=== PATIENT | female | born 1985 | race Caucasian/White ===

== ENCOUNTER 2017-03-29 18:16 | Emergency (ER) | payer OTHER ==
[~2017-03-29] VITALS: Ht 165.1 cm; Wt 87.0 kg
[~2017-03-29 18:16] MED LIST: AMOX1TAB10 PO; HYDR-902 PO; IBUP-1542 PO
[2017-03-29 18:18] VITALS: Ht 165.1 cm; Wt 87.0 kg
[2017-03-29] MEDS ORDERED: ONDANSETRON 4 MG INJ IV STA (18:50)
[2017-03-29] MEDS ORDERED: SOD CHLORIDE 0.9% 1,000 ML IV STA (18:50)
[2017-03-29] MEDS ORDERED: FAMOTIDINE 20 MG INJ IV ONE (19:00)
[2017-03-29] MEDS ORDERED: METHYLPREDNISOLONE 125 MG INJ IV ONE (19:00)
[2017-03-29] MEDS ORDERED: DIPHENHYDRAMINE 50 MG INJ IV ONE (19:00)
--- NOTE | 2017-03-29 19:20 | ERD ---
ER Documentation Chief Complaint Date/Time DATE: 03/29/17 TIME: 19:18 Chief Complaint Coomplains of an allergic reaction after eating pork HPI 31-year-old female comes emergency department with a generalized rash, nausea vomiting and abdominal pain after eating pork this afternoon. Patient states she has intermittent lower abdominal cramping pain. Patient states that she did not eat anything else new as she was fasting, denies other new foods, medications, lotions or creams. She states that her rash is itchy, mostly on the arms and trunk. She has not ever had a reaction like this before to poor, denies any known allergens. She denies any trouble swallowing, shortness of breath. ROS All systems reviewed and are negative except as per history of present illness. Medications Home Meds Active Scripts Diphenhydramine Hcl* (Benadryl*) 25 Mg Cap, 25 MG PO Q6, #30 CAP Prov:JO ANN DEY PA-C 03/29/17 Famotidine* (Pepcid*) 20 Mg Tablet, 20 MG PO BID for 4 Days, TAB Prov:JO ANN DEY PA-C 03/29/17 Prednisone* (Prednisone*) 20 Mg Tab, 40 MG PO DAILY for 4 Days, TAB Prov:JO ANN DEY PA-C 03/29/17 Hydrocodone/Acetaminophen ([place] 10-325 Tablet) 1 Each Tablet, 1 TAB PO Q6H Y for PAIN, #7 TAB Prov:OMERO COLBY MD 06/25/16 Ibuprofen* (Motrin*) 600 Mg Tab, 600 MG PO Q8H Y for PAIN, #20 TAB Prov:OMERO COLBY MD 06/25/16 Amoxicillin/Potassium Clav (Amox-Clav 875-125 mg Tablet) 875-125 mg Tab, 1 TAB PO BID for 10 Days, #20 TAB Prov:OMERO COLBY MD 06/25/16 Allergies Allergies: Coded Allergies: No Known Allergy (Unverified , 06/25/16) PMhx/Soc Medical and Surgical Hx: pt denies Medical Hx, pt denies Surgical Hx History of Surgery: No Anesthesia Reaction: No Hx Neurological Disorder: No Hx Respiratory Disorders: No Hx Cardiac Disorders: No Hx Psychiatric Problems: No Hx Miscellaneous Medical Probl: No Hx Alcohol Use: No Hx Substance Use: No Hx Tobacco Use: No Smoking Status: Never smoker Physical Exam Vitals Vital Signs Date Time Temp Pulse Resp B/P Pulse Ox O2 Delivery O2 Flow Rate FiO2 03/29/17 20:33 98.6 73 16 114/59 100 Room Air 03/29/17 18:18 97.9 78 20 129/73 94 Physical Exam General: Well-developed, well-nourished. The patient appears in no acute distress. HEENT: Head is normocephalic, atraumatic. No scleral icterus. No angioedema. Neck: Supple. Nontender. Lungs: Clear to auscultation. Normal air movement. Heart: Regular rate and rhythm. S1 and S2 are normal. No murmurs, gallops, or rubs. Abdomen: Soft, nontender, nondistended. Bowel sounds are normoactive. Extremities: No clubbing or cyanosis. Normal pulses. Moving extremities x 4. No weakness. Neurologic: Alert and oriented 3. No focal deficits. Skin: Scattered hives on upper extremities and trunk, rashes blanchable. Result Diagram: 03/29/17190903/29/171909 Results 24 hrs Laboratory Tests Test 03/29/17 19:01 03/29/17 19:10 Urine Color LT. YELLOW Urine Clarity CLEAR Urine pH 6.0 Urine Specific [place] 1.025 Urine Ketones 3+ Urine Nitrite NEGATIVE Urine Bilirubin NEGATIVE Urine Urobilinogen 0.2 E.U./dL Urine Leukocyte Esterase NEGATIVE Urine Microscopic RBC 0-2/HPF Urine Microscopic WBC NONE SEEN/HPF Urine Epithelial Cells OCCASIONAL Urine Hemoglobin TRACE Urine Glucose NEGATIVE% Urine Total Protein NEGATIVE White Blood Count 13.110^3/ul Red Blood Count 4.6810^6/ul Hemoglobin 12.3g/dl Hematocrit 37.0% Mean Corpuscular Volume 79.1fl Mean Corpuscular Hemoglobin 26.3pg Mean Corpuscular Hemoglobin Concent 33.2g/dl Red Cell Distribution Width 13.7% Platelet Count 05422^3/UL Mean Platelet Volume 11.9fl Neutrophils % 73.5% Lymphocytes % 23.2% Monocytes % 2.5% Eosinophils % 0.2% Basophils % 0.2% Nucleated Red Blood Cells % 0.0/100WBC Neutrophils # 9.610^3/ul Lymphocytes # 3.010^3/ul Monocytes # 0.310^3/ul Eosinophils # 0.010^3/ul Basophils # 0.010^3/ul Nucleated Red Blood Cells # 0.010^3/ul Sodium Level 136mmol/L Potassium Level 3.3mmol/L Chloride Level 100mmol/L Carbon Dioxide Level 24mmol/L Anion Gap 15 Blood Urea Nitrogen 14mg/dl Creatinine 0.56mg/dl Glucose Level 173mg/dl Calcium Level 9.5mg/dl Total Bilirubin 0.5mg/dl Direct Bilirubin 0.00mg/dl Indirect Bilirubin 0.5mg/dl Aspartate Amino Transf (AST/SGOT) 19IU/L Alanine Aminotransferase (ALT/SGPT) 20IU/L Alkaline Phosphatase 98IU/L Total Protein 7.6g/dl Albumin 4.9g/dl Globulin 2.70g/dl Albumin/Globulin Ratio 1.81 Lipase 41U/L Current Medications Medications (Trade) Dose Ordered Sig/Vale Route PRN Reason Start Time Stop Time Status Last Admin Dose Admin Sodium Chloride (NS) 1,000 ml @ 1,000 mls/hr Q1H STAT IV 03/29/17 18:50 03/29/17 19:49 DC 03/29/17 19:07 Ondansetron HCl (Zofran Inj) 4 mg ONCE STAT IV 03/29/17 18:50 03/29/17 18:51 DC 03/29/17 19:07 Diphenhydramine HCl (Benadryl) 25 mg ONCE ONCE IV 03/29/17 19:00 03/29/17 19:01 DC 03/29/17 19:07 Famotidine (Pepcid Iv) 20 mg ONCE ONCE IV 03/29/17 19:00 03/29/17 19:01 DC 03/29/17 19:07 Methylprednisolone Sodium Succinate (Solu-Medrol) 125 mg ONCE ONCE IV 03/29/17 19:00 03/29/17 19:01 DC 03/29/17 19:07 Morphine Sulfate (morphine) 4 mg ONCE STAT IV 03/29/17 19:38 03/29/17 19:40 DC 03/29/17 19:42 DIAGNOSTIC IMAGING REPORT Patient: SUZETTE CARDONA : 1985 Age: 31 Sex: F MR #: [id number] DOS: 03/29/17 1938 Ordering MD: JO ANN DEY PA-C Location: [facility] Room/Bed: PROCEDURE: US Pelvis. CLINICAL INDICATION: Pelvic pain. TECHNIQUE: The pelvis was evaluated with transabdominal and transvaginal sonography in the axial and sagittal planes. COMPARISON: No prior study is available for comparison. FINDINGS: Uterus: 9.7 x 4.0 x 5.8 cm. Endometrium: 13.5 mm. Fluid is present in the endometrial canal. Right ovary: 3.0 x 2.1 x 3.1 cm. Left ovary: Not visualized. Uterine masses: None. Ovarian masses: The right ovary is normal. The left ovary is not visualized. Color Doppler and pulsed Doppler sonography demonstrate normal flow to the right ovary. Other pelvic masses: None. Free fluid: None. IMPRESSION: 1. Fluid in the endometrial canal. 2. No intrauterine gestational sac. If the patient has a positive test, ectopic gestation cannot be excluded. 3. Left ovary not visualized. 4. Otherwise normal pelvic ultrasound. RPTAT: QQ .Lenard Shultz MD, MD Date Time Electronically viewed and signed by .Lenard Shultz MD, MD on 03/29/2017 20:14 .R/ CC: JO ANN DEY PA-C Procedures/[facility] ED course: Patient had an IV line established, blood and urine were obtained. She was given a fluid bolus of normal saline, Benadryl 25 mg IV, Pepcid 20 mg IV and Solu-Medrol 125 mg IV, and patient was given morphine 4 mg for pain. Medical decision makin-year-old female comes in with a rash, nausea, vomiting abdominal pain after eating pork this afternoon. This is very to be an allergic reaction given her rash. Lower abdominal pain with nausea vomiting is likely food related. She did request pelvic ultrasound at this time, she did not have any evidence of an ovarian torsion or adnexal mass. Patient currently is not . She did have labs obtained, and there was mild leukocytosis at 13,000, however likely due to pain. Patient did not have any persistent systemic findings of an allergic reaction. She was given Benadryl, Pepcid and Solu-Medrol in the emergency department and responded well, she states that she was feeling better, and upon reexamination she was free of abdominal pain, and her rash has subsided. Patient was concerned about appendicitis, however serial abdominal examinations were done, the history of intermittent cramping abdominal pain does not appear to be any signs of acute appendicitis. She does not have any McBurney's tenderness on examination. She was observed here and did not have any rebound effects and is stable for discharge. Departure Diagnosis: Primary Impression: Allergic reaction Condition: Good (ERASED) JO ANN DEY PA-C Mar 29, 2017 19:20
[2017-03-29] MEDS ORDERED: morphine 4 MG/ML VIAL IV STA (19:38)
[2017-03-29 19:47] LABS: ADD SCAN DIFF NO
[2017-03-29 19:49] LABS: BASOPHILS % 0.2 % (0.0-2.0); EOSINOPHILS % 0.2 % (0.0-7.0); HEMOGLOBIN 12.3 g/dl (12.0-16.0); LYMPHOCYTES % 23.2 % (15.0-51.0); MEAN CORPUSCULAR HEMOGLOBIN 26.3 pg (29.0-33.0); MEAN CORPUSCULAR HGB CONC 33.2 g/dl (32.0-37.0); MEAN CORPUSCULAR VOLUME 79.1 fl (82.0-101.0); MEAN PLATELET VOLUME 11.9 fl (7.4-10.4); MONOCYTE # 0.3 10^3/ul (0.3-0.9); MONOCYTES % 2.5 % (0.0-11.0); NEUTROPHIL # 9.6 10^3/ul (1.6-7.5); NEUTROPHILS % 73.5 % (39.0-77.0); PLATELET COUNT 308 10^3/UL (140-415); RED BLOOD COUNT 4.68 10^6/ul (4.20-5.40); RED CELL DISTRIBUTION WIDTH 13.7 % (11.5-14.5); WHITE BLOOD COUNT 13.1 10^3/ul (4.8-10.8)
[2017-03-29 19:51] LABS: ADD UMIC YES; UR BILIRUBIN (Dip) NEGATIVE (NEGATIVE); UR BLOOD (Dip) TRACE (NEGATIVE); UR CLARITY CLEAR (CLEAR); UR COLOR LT. YELLOW (YELLOW); UR GLUCOSE (Dip) NEGATIVE (NEGATIVE); UR KETONES (Dip) 3+ (NEGATIVE); UR LEUKOCYTE ESTERASE (Dip) NEGATIVE (NEGATIVE); UR NITRITE (Dip) NEGATIVE (NEGATIVE); UR TOTAL PROTEIN (Dip) NEGATIVE (NEGATIVE); UR UROBILINOGEN (Dip) 0.2 E.U./dL (0.1-1.0)
[2017-03-29 19:58] LABS: URINE RBCS 0-2 /HPF (0)
--- NOTE | 2017-03-29 20:15 | RADRPT ---
PROCEDURE: US Pelvis. CLINICAL INDICATION: Pelvic pain. TECHNIQUE: The pelvis was evaluated with transabdominal and transvaginal sonography in the axial a nd sagittal planes. COMPARISON: No prior study is available for comparison. FINDINGS: Uterus: 9.7 x 4.0 x 5.8 cm. Endometrium: 13.5 mm. Fluid is present in the endometrial canal. Right ovary: 3.0 x 2.1 x 3.1 cm. Left ovary: Not visualized. Uterine masses: None. Ovarian masses: The right ovary is normal. The left ovary is not visualized. Color Doppler and puls ed Doppler sonography demonstrate normal flow to the right ovary. Other pelvic masses: None. Free fluid: None. IMPRESSION: 1. Fluid in the endometrial canal. 2. No intrauterine gestational sac. If the patient has a positive test, ectopic gestatio n cannot be excluded. 3. Left ovary not visualized. 4. Otherwise normal pelvic ultrasound. RPTAT: QQ .Lenard Shultz MD, Date Time Electronically viewed and signed by .Lenard Shultz MD, on 03/29/2017 20:14 .R/
[2017-03-29 20:16] LABS: ALBUMIN 4.9 g/dl (3.3-4.9); ALBUMIN/GLOBULIN RATIO 1.81; BILIRUBIN,INDIRECT 0.5 mg/dl (0-1.1); BILIRUBIN,TOTAL 0.5 mg/dl (0.2-1.3); CALCIUM 9.5 mg/dl (8.4-10.2); CREATININE 0.56 mg/dl (0.44-1.00); POTASSIUM 3.3 mmol/L (3.5-5.1); TOTAL PROTEIN 7.6 g/dl (6.1-8.1)
[2017-03-29] MEDS ORDERED: BEN25 PO (20:28)
[2017-03-29] MEDS ORDERED: PRED20TA PO (20:28)
[2017-03-29] MEDS ORDERED: FAMO-18 PO (20:28)
[2017-03-29 20:33] VITALS: BP 114/59; PULSE 73; RESP 16; TEMP 98.6
== END 2017-03-29 20:38 | disposition home or self-care (01) ==
LOC: FTE 18:16
DX: T78.1XXA Other adverse food reactions, not elsewhere classified, initial encounter (principal); R21 Rash and other nonspecific skin eruption; R11.2 Nausea with vomiting, unspecified; R10.2 Pelvic and perineal pain
CPT/HCPCS: 36415; 76830; 76856; 80053; 81001; 83690; 85025; 96374; 96375; J1200; J2270; J2405; J2930; J7030; Z7502; Z7610

== ENCOUNTER 2017-03-31 11:06 | Emergency (ER) | payer OTHER ==
[~2017-03-31] VITALS: Ht 160 cm; Wt 88.5 kg
[~2017-03-31 11:06] MED LIST changes: +BEN25 PO; +FAMO-18 PO; +PRED20TA PO
[2017-03-31 11:18] VITALS: Ht 160 cm; Wt 88.5 kg
--- NOTE | 2017-03-31 11:50 | ERA ---
ER Documentation Chief Complaint Date/Time DATE: 03/31/17 TIME: 11:49 Chief Complaint Pt with AP/diarrhea x3 days, referrred by PMD for CT scan. HPI The patient is a 31-year-old female, presenting to the ER because of diffuse abdominal pain intermittently for the last 3 days, associated with constipation and dysuria. She was seen in the ER 2 days ago for allergic reaction when she had an ultrasound of the pelvic. She went to see her doctor today who sent her to the ED for abdominal and pelvic CT scan. She denies fever, chills, neck pain , chest pain, dyspnea. The abdominal pain is diffuse, worse with constipation, denies dysuria, diarrhea. She does not smoke or drink Past medical history: None Past surgical history: One ROS All systems reviewed and are negative except as per history of present illness. Medications Home Meds Active Scripts Polyethylene Glycol* (Miralax*) 17 Gm Powd.pack, 17 GM PO DAILY, #7 Prov:OMERO COLBY MD 03/31/17 Diphenhydramine Hcl* (Benadryl*) 25 Mg Cap, 25 MG PO Q6, #30 CAP Prov:JO ANN DEY PA-C 03/29/17 Famotidine* (Pepcid*) 20 Mg Tablet, 20 MG PO BID for 4 Days, TAB Prov:JO ANN DEY PA-C 03/29/17 Prednisone* (Prednisone*) 20 Mg Tab, 40 MG PO DAILY for 4 Days, TAB Prov:JO ANN DEY PA-C 03/29/17 Hydrocodone/Acetaminophen ([place] 10-325 Tablet) 1 Each Tablet, 1 TAB PO Q6H Y for PAIN, #7 TAB Prov:OMERO COLBY MD 06/25/16 Ibuprofen* (Motrin*) 600 Mg Tab, 600 MG PO Q8H Y for PAIN, #20 TAB Prov:OMERO COLBY MD 06/25/16 Amoxicillin/Potassium Clav (Amox-Clav 875-125 mg Tablet) 875-125 mg Tab, 1 TAB PO BID for 10 Days, #20 TAB Prov:OMERO COLBY MD 06/25/16 Allergies Allergies: Coded Allergies: No Known Allergy (Unverified , 06/25/16) PMhx/Soc History of Surgery: No Anesthesia Reaction: No Hx Neurological Disorder: No Hx Respiratory Disorders: No Hx Cardiac Disorders: No Hx Psychiatric Problems: No Hx Miscellaneous Medical Probl: No Hx Alcohol Use: No Hx Substance Use: No Hx Tobacco Use: No Physical Exam Vitals Vital Signs Date Time Temp Pulse Resp B/P Pulse Ox O2 Delivery O2 Flow Rate FiO2 03/31/17 11:18 98.4 56 16 121/68 96 Physical Exam Const: No acute distress. Head: Atraumatic. Eyes: Normal Conjunctiva. ENT: Normal External Ears, Nose and Mouth. Neck: Full range of motion. No meningismus. Resp: Clear to auscultation bilaterally. Cardio: Regular rate and rhythm. Abd: Soft, non distended, normal bowel sounds, vague and diffuse abdominal tenderness, more tender at the suprapubic and right upper quadrant. No rigidity, rebound, CVA tenderness Skin: No petechiae or rashes. Back: No midline or flank tenderness. Ext: No cyanosis, or edema. Neur: Awake and alert. No focal deficit Psych: Normal Mood and Affect. Result Diagram: 03/31/17 1225 03/31/17 1225 Results 24 hrs Laboratory Tests Test 03/31/17 12:18 03/31/17 12:25 Bedside Urine pH (LAB) 6.0 Bedside Urine Protein (LAB) Negative Bedside Urine Glucose (UA) Negative Bedside Urine Ketones (LAB) Negative Bedside Urine Blood 1+ Bedside Urine Nitrite (LAB) Negative Bedside Urine Leukocyte Esterase (L Negative White Blood Count 9.210^3/ul Red Blood Count 4.3110^6/ul Hemoglobin 11.0g/dl Hematocrit 34.6% Mean Corpuscular Volume 80.3fl Mean Corpuscular Hemoglobin 25.5pg Mean Corpuscular Hemoglobin Concent 31.8g/dl Red Cell Distribution Width 14.2% Platelet Count 66328^3/UL Mean Platelet Volume 11.7fl Neutrophils % 46.5% Lymphocytes % 46.1% Monocytes % 5.9% Eosinophils % 0.8% Basophils % 0.4% Nucleated Red Blood Cells % 0.0/100WBC Neutrophils # 4.310^3/ul Lymphocytes # 4.210^3/ul Monocytes # 0.510^3/ul Eosinophils # 0.110^3/ul Basophils # 0.010^3/ul Nucleated Red Blood Cells # 0.010^3/ul Sodium Level 145mmol/L Potassium Level 3.6mmol/L Chloride Level 109mmol/L Carbon Dioxide Level 27mmol/L Anion Gap 13 Blood Urea Nitrogen 6mg/dl Creatinine 0.48mg/dl Glucose Level 80mg/dl Calcium Level 9.2mg/dl Total Bilirubin 0.1mg/dl Direct Bilirubin 0.00mg/dl Indirect Bilirubin 0.1mg/dl Aspartate Amino Transf (AST/SGOT) 17IU/L Alanine Aminotransferase (ALT/SGPT) 23IU/L Alkaline Phosphatase 86IU/L Total Protein 6.9g/dl Albumin 4.3g/dl Globulin 2.60g/dl Albumin/Globulin Ratio 1.65 Lipase 44U/L Procedures/[place] [id number] Radiology Main Line: [phone] DIAGNOSTIC IMAGING REPORT Patient: SUZETTE CARDONA : 1985 Age: 31 Sex: F MR #: [id number] DOS: 03/31/17 [facility]8 Ordering MD: OMERO COLBY MD Location: [facility] Room/Bed: PROCEDURE: CT Abdomen and pelvis without contrast. CLINICAL INDICATION: Abdominal and pelvic pain. TECHNIQUE: CT scan of the abdomen and pelvis without contrast was performed on a multidetector high-resolution CT scan. . Coronal and sagittal reformatted images were obtained from the axial source images. Standard CT scan of the abdomen pelvis without contrast protocols were performed. The total exam CTDI equals 19.67 mGy and the total exam DLP [id number] mGy- cm. One or more of the following dose reduction techniques were used: - Automated exposure control. - Adjustment of the mA and/or kV according to patient size. Use of iterative reconstruction technique. COMPARISON: CT abdomen pelvis 06/25/2016 FINDINGS: The kidneys are normal in size without calcified renal calculi, hydronephrosis or intra renal masses bilaterally. The ureters and urinary bladder are unremarkable. The uterus is anteverted and anteflexed which is otherwise unremarkable. No adnexal masses. The appendix is unremarkable. The stomach, the stomach and small bowel are unremarkable. There is minimal diverticular changes of the mid transverse colon. There is no CT evidence of diverticulitis. The colon is otherwise unremarkable. Negative for intra-abdominal free air, free fluid, abscesses or lymphadenopathy. The liver spleen pancreas adrenal glands and gallbladder are unremarkable. No evidence of biliary ductal dilation. The aorta is unremarkable. The lung bases are unremarkable. There is a mild levorotatory scoliosis of the lumbar spine. The osseous structures are otherwise unremarkable without evidence of acute osseous findings or osteoblastic/osteolytic lesions. IMPRESSION: 1. No evidence of calcified urinary calculi or obstructive uropathy. 2. Unremarkable appendix. Negative for intra-abdominal free air fluid abscesses or lymphadenopathy. 3. Minimal diverticulosis of the colon but no CT evidence of diverticulitis. RPTAT:AAJJ Physician Mary Lou Date Time Electronically viewed and signed by Physician Mary Lou on 03/31/2017 13:39 BM/ CC: OMERO COLBY MD MEDICAL MAKING DECISION: The patient is a 31-year-old female, presenting with abdominal pain, most likely due to constipation. She was advised that she does not need abdominal and pelvic CT, however she insists on having the CT. The differential diagnoses considered include but are not limited to cholelithiasis, cholecystitis, cystitis, pancreatitis, hepatitis, gastritis, peptic ulcer disease, gastric ulcer, appendicitis, diverticulitis, cholangitis, choledocholithiasis, partial small bowel obstruction. Departure Diagnosis: Primary Impression: Abdominal pain Additional Impression: Constipation Condition: Good Comments She was discharged with MiraLAX I discussed the findings with the patient. I advised the patient to follow-up with the primary physician in about 1-2 days, sooner if needed and return if any concern. OMERO COLBY MD Mar 31, 2017 11:50
[2017-03-31 12:14] LABS: URINE BLOOD (Dip) POC 1+ (NEGATIVE)
[2017-03-31 12:33] LABS: ADD SCAN DIFF NO
[2017-03-31 12:37] LABS: BASOPHILS % 0.4 % (0.0-2.0); EOSINOPHILS # 0.1 10^3/ul (0.0-0.5); EOSINOPHILS % 0.8 % (0.0-7.0); HEMATOCRIT 34.6 % (37.0-47.0); LYMPHOCYTES # 4.2 10^3/ul (0.8-2.9); LYMPHOCYTES % 46.1 % (15.0-51.0); MEAN CORPUSCULAR HEMOGLOBIN 25.5 pg (29.0-33.0); MEAN CORPUSCULAR HGB CONC 31.8 g/dl (32.0-37.0); MEAN CORPUSCULAR VOLUME 80.3 fl (82.0-101.0); MEAN PLATELET VOLUME 11.7 fl (7.4-10.4); MONOCYTE # 0.5 10^3/ul (0.3-0.9); MONOCYTES % 5.9 % (0.0-11.0); NEUTROPHIL # 4.3 10^3/ul (1.6-7.5); NEUTROPHILS % 46.5 % (39.0-77.0); PLATELET COUNT 261 10^3/UL (140-415); RED BLOOD COUNT 4.31 10^6/ul (4.20-5.40); RED CELL DISTRIBUTION WIDTH 14.2 % (11.5-14.5); WHITE BLOOD COUNT 9.2 10^3/ul (4.8-10.8)
[2017-03-31 13:05] LABS: ALBUMIN 4.3 g/dl (3.3-4.9); ALBUMIN/GLOBULIN RATIO 1.65; BILIRUBIN,INDIRECT 0.1 mg/dl (0-1.1); BILIRUBIN,TOTAL 0.1 mg/dl (0.2-1.3); CALCIUM 9.2 mg/dl (8.4-10.2); CREATININE 0.48 mg/dl (0.44-1.00); POTASSIUM 3.6 mmol/L (3.5-5.1); TOTAL PROTEIN 6.9 g/dl (6.1-8.1)
--- NOTE | 2017-03-31 13:40 | RADRPT ---
PROCEDURE: CT Abdomen and pelvis without contrast. CLINICAL INDICATION: Abdominal and pelvic pain. TECHNIQUE: CT scan of the abdomen and pelvis without contrast was performed on a multidetector hig h-resolution CT scan. . Coronal and sagittal reformatted images were obtained from the axial [facility] e images. Standard CT scan of the abdomen pelvis without contrast protocols were performed. The total exam CTDI equals 19.67 mGy and the total exam DLP [id number] mGy-cm. One or more of the following dose reduction techniques were used: - Automated exposure control. - Adjustment of the mA and/or kV according to patient size. Use of iterative reconstruction technique. COMPARISON: CT abdomen pelvis 06/25/2016 FINDINGS: The kidneys are normal in size without calcified renal calculi, hydronephrosis or intra renal masses bilaterally. The ureters and urinary bladder are unremarkable. The uterus is anteverted and anteflexed which is otherwise unremarkable. No adnexal masses. The appendix is unremarkable. The stomach, the stomach and small bowel are unremarkable. There is minimal diverticular changes of the mid transverse colon. There is no CT evidence of diverticulitis . The colon is otherwise unremarkable. Negative for intra-abdominal free air, free fluid, abscesses or lymphadenopathy. The liver spleen pancreas adrenal glands and gallbladder are unremarkable. No evidence of biliary d uctal dilation. The aorta is unremarkable. The lung bases are unremarkable. There is a mild levorotatory scoliosis of the lumbar spine. The osseous structures are otherwise unremarkable without evidence of acute o sseous findings or osteoblastic/osteolytic lesions. IMPRESSION: 1. No evidence of calcified urinary calculi or obstructive uropathy. 2. Unremarkable appendix. Negative for intra-abdominal free air fluid abscesses or lymphadenopathy . 3. Minimal diverticulosis of the colon but no CT evidence of diverticulitis. RPTAT:AAJJ Physician Mary Lou Date Time Electronically viewed and signed by Physician Mary Lou on 03/31/2017 13:39 BM/
[2017-03-31] MEDS ORDERED: POLY17PO6 PO (13:57)
== END 2017-03-31 14:15 | disposition home or self-care (01) ==
LOC: FTE 11:06
DX: R10.84 Generalized abdominal pain (principal); K59.00 Constipation, unspecified; R10.2 Pelvic and perineal pain
CPT/HCPCS: 36415; 74176; 80053; 81003; 83690; 85025; Z7502

== ENCOUNTER 2017-04-22 11:08 | Emergency (ER) | END 2017-04-22 11:55 | disposition home or self-care (01) | DX: R21 Rash and other nonspecific skin eruption (principal) ==

== ENCOUNTER 2019-01-06 08:17 | Emergency (ER) | payer OTHER ==
[~2019-01-06] VITALS: Ht 167.6 cm; Wt 81.9 kg
[~2019-01-06 08:17] MED LIST changes: -FAMO-18 PO; +FAMO-96 PO; +HYDR-3980 PO; -HYDR-902 PO; +POLY17PO6 PO; +TR1B60 TOP
[2019-01-06 08:21] VITALS: BP 117/65; PULSE 57; RESP 20; Ht 167.6 cm; Wt 81.9 kg
[2019-01-06] MEDS ORDERED: KETOROLAC 30 MG INJ IV STA (08:42)
[2019-01-06] MEDS ORDERED: SOD CHLORIDE 0.9% 1,000 ML IV STA (08:42)
[2019-01-06] MEDS ORDERED: ONDANSETRON 4 MG INJ IV STA (08:42)
[2019-01-06] MEDS ORDERED: FAMOTIDINE 20 MG TAB PO ONE (09:00)
[2019-01-06] MEDS ORDERED: HYDR-4011 PO (10:15)
[2019-01-06] MEDS ORDERED: FAMO-96 PO (10:15)
--- NOTE | 2019-01-06 11:12 | ERD ---
ER Documentation Chief Complaint Chief Complaint Complains of abdominal pain and possible chemical inhalation x 3 days HPI 33-year-old female presenting with epigastric pain times 3 days. She states she had this pain for the last week that is constant but is worsened over the last 3 days. Denies any chest pain or shortness of breath. No fevers. Denies any vomiting. Feels nauseous. Has not taken medications for symptoms. Denies medical problems. NKDA. Surgical history . Social history denies ROS All systems reviewed and are negative except as per history of present illness. Medications Home Meds Active Scripts Famotidine* (Pepcid*) 20 Mg Tablet, 20 MG PO BID for 4 Days, #30 TAB Prov:DAMON DEWITT PA-C 01/06/19 Hydrocodone/Acetaminophen ([place] 5-325 Tablet) 1 Each Tablet, 1 TAB PO Q6H PRN for PAIN, #7 TAB Prov:DAMON DEWITT PA-C 01/06/19 Triamcinolone Acetonide (Triamcinolone Acetonide) 0.1% - 60 Ml Lotion, 1 APPLIC TOP BID, #30 GM Prov:BELLA BETANCOURT PA-C 04/22/17 Polyethylene Glycol* (Miralax*) 17 Gm Powd.pack, 17 GM PO DAILY, #7 Prov:OMERO COLBY MD 03/31/17 Diphenhydramine Hcl* (Benadryl*) 25 Mg Cap, 25 MG PO Q6, #30 CAP Prov:JO ANN DEY PA-C 03/29/17 Famotidine* (Pepcid*) 20 Mg Tablet, 20 MG PO BID for 4 Days, TAB Prov:JO ANN DEY PA-C 03/29/17 Prednisone* (Prednisone*) 20 Mg Tab, 40 MG PO DAILY for 4 Days, TAB Prov:JO ANN DEY PA-C 03/29/17 Hydrocodone/Acetaminophen ([place] 10-325 Tablet) 1 Each Tablet, 1 TAB PO Q6H PRN for PAIN, #7 TAB Prov:OMERO COLBY MD 06/25/16 Ibuprofen* (Motrin*) 600 Mg Tab, 600 MG PO Q8H PRN for PAIN, #20 TAB Prov:OMERO COLBY MD 06/25/16 Amoxicillin/Potassium Clav (Amox-Clav 875-125 mg Tablet) 875-125 mg Tab, 1 TAB PO BID for 10 Days, #20 TAB Prov:OMERO COLBY MD 06/25/16 Allergies Allergies: Coded Allergies: No Known Allergy (Unverified , 04/22/17) PMhx/Soc History of Surgery: No Anesthesia Reaction: No Hx Neurological Disorder: No Hx Respiratory Disorders: No Hx Cardiac Disorders: No Hx Psychiatric Problems: No Hx Miscellaneous Medical Probl: No Hx Alcohol Use: No Hx Substance Use: No Hx Tobacco Use: No FmHx Family History: No diabetes, No coronary disease, No other Physical Exam Vitals Vital Signs Date Temp Pulse Resp B/P (MAP) Pulse Ox O2 O2 Flow FiO2 Time Delivery Rate 01/06/19 98.5 57 20 117/65 100 08:21 (82) Physical Exam GENERAL: The patient is well-appearing, well-nourished, in no acute distress HEENT: Atraumatic. Conjunctivae are pink. Pupils equal, round, and reactive to light. There is no scleral icterus. Tympanic membranes clear bilaterally. Oropharynx clear. NECK: C-spine is soft and supple. There is no meningismus. There is no cervical lymphadenopathy. CHEST: Clear to auscultation bilaterally. There are no rales, wheezes or rhonchi. HEART: Regular rate and rhythm. No murmurs, clicks, rubs or gallops. ABDOMEN: Normal active bowel sounds. No distention. No organomegaly. Tender to palpation epigastric region. Result Diagram: 01/06/19 0913 01/06/19 0913 Results 24 hrs Laboratory Tests Test 01/06/19 09:13 01/06/19 09:17 White Blood Count 11.4 10^3/ul Red Blood Count 4.70 10^6/ul Hemoglobin 11.6 g/dl Hematocrit 36.9 % Mean Corpuscular Volume 78.5 fl Mean Corpuscular Hemoglobin 24.7 pg Mean Corpuscular Hemoglobin Concent 31.4 g/dl Red Cell Distribution Width 13.5 % Platelet Count 306 10^3/UL Mean Platelet Volume 11.2 fl Immature Granulocytes % 0.700 % Neutrophils % 60.6 % Lymphocytes % 29.9 % Monocytes % 7.4 % Eosinophils % 0.9 % Basophils % 0.5 % Nucleated Red Blood Cells % 0.0 /100WBC Immature Granulocytes # 0.080 10^3/ul Neutrophils # 6.9 10^3/ul Lymphocytes # 3.4 10^3/ul Monocytes # 0.9 10^3/ul Eosinophils # 0.1 10^3/ul Basophils # 0.1 10^3/ul Nucleated Red Blood Cells # 0.0 10^3/ul Sodium Level 143 mmol/L Potassium Level 3.7 mmol/L Chloride Level 106 mmol/L Carbon Dioxide Level 27 mmol/L Anion Gap 10 Blood Urea Nitrogen 7 mg/dl Creatinine 0.41 mg/dl Est Glomerular Filtrat Rate mL/min > 60 mL/min Glucose Level 87 mg/dl Calcium Level 9.6 mg/dl Total Bilirubin 0.3 mg/dl Direct Bilirubin 0.00 mg/dl Indirect Bilirubin 0.3 mg/dl Aspartate Amino Transf (AST/SGOT) 22 IU/L Alanine Aminotransferase (ALT/SGPT) 20 IU/L Alkaline Phosphatase 93 IU/L Total Protein 7.7 g/dl Albumin 4.2 g/dl Globulin 3.50 g/dl Albumin/Globulin Ratio 1.20 Lipase 39 U/L Urine Color YELLOW Urine Clarity SLIGHTLY CLOUDY Urine pH 7.0 Urine Specific [place] 1.016 Urine Ketones NEGATIVE mg/dL Urine Nitrite NEGATIVE mg/dL Urine Bilirubin NEGATIVE mg/dL Urine Urobilinogen NEGATIVE mg/dL Urine Leukocyte Esterase NEGATIVE Annalisa/ul Urine Microscopic RBC 2 /HPF Urine Microscopic WBC 1 /HPF Urine Squamous Epithelial Cells FEW /HPF Urine Bacteria FEW /HPF Urine Mucus FEW /HPF Urine Hemoglobin 1+ mg/dL Urine Glucose NEGATIVE mg/dL Urine Total Protein NEGATIVE mg/dl POC Beta HCG, Qualitative NEGATIVE Current Medications Medications Dose Sig/Vale Start Time Status Last (Trade) Ordered Route PRN Stop Time Admin Dose Reason Admin Sodium 1,000 ml @ Q1H STAT 01/06/19 DC 01/06/19 Chloride 1,000 mls/hr IV 08:42 09:35 01/06/19 09:41 Ondansetron 4 mg ONCE STAT 01/06/19 DC 01/06/19 HCl (Zofran IV 08:42 09:34 Inj) 01/06/19 08:43 Ketorolac 30 mg ONCE STAT 01/06/19 DC 01/06/19 Tromethamine IV 08:42 09:35 (Toradol) 01/06/19 08:43 Famotidine 20 mg ONCE ONCE 01/06/19 DC 01/06/19 (Pepcid) PO 09:00 09:34 01/06/19 09:01 Procedures/MDM DIAGNOSTIC IMAGING REPORT Patient: SUZETTE CARDONA : 1985 Age: 33 Sex: F MR #: [id number] DOS: 01/06/19 0842 Ordering MD: CHRISTIAN DEWITT PA-C Location: [facility] Room/Bed: PROCEDURE: US Abdomen. CLINICAL INDICATION: abdominal pain TECHNIQUE: Multiple real-time images were acquired of the patient's right upper quadrant abdomen and retroperitoneum utilizing a high resolution transducer. COMPARISON: CT 03/31/2017 FINDINGS: The liver demonstrates normal echogenicity. The liver is normal in size and no focal solid lesions are seen. The liver measures 17.5 cm in length. The portal vein is patent with normal direction of flow. No intrahepatic biliary dilatation is seen. Multiple small gallstones are identified within the gallbladder. There is no pericholecystic fluid or gallbladder wall thickening. The common bile duct measures 3 mm in maximal dimension. The visualized portions of the pancreas are unremarkable. The tail of the pancreas is not seen. No free fluid is identified. The right kidney is normal in size, and demonstrate normal echogenicity and cortical thickness. The right kidney measures 11.1 cm in long dimension. There is no evidence of hydronephrosis. There are no kidney stones. RPTAT: AA IMPRESSION: Cholelithiasis. MDM: 33-year-old female presents with epigastric pain. Patient has findings consistent with cholelithiasis. I have low suspicion for choledocholithiasis, I have low suspicion for choledocholithiasis or pancreatitis. Patient is discharged with strict ER precautions and told to follow-up with primary care within 1-2 days for close evaluation. Patient is told if symptoms change or worsen to return immediately to the ER. All questions answered at discharge Departure Diagnosis: Primary Impression: Gallstones Condition: Stable Patient Instructions: Gallstones Referrals: [facility] YOU HAVE RECEIVED A MEDICAL SCREENING EXAM AND THE RESULTS INDICATE THAT YOU DO NOT HAVE A CONDITION THAT REQUIRES URGENT TREATMENT IN THE EMERGENCY DEPARTMENT. FURTHER EVALUATION AND TREATMENT OF YOUR CONDITION CAN WAIT UNTIL YOU ARE SEEN IN YOUR DOCTORS OFFICE WITHIN THE NEXT 1-2 DAYS. IT IS YOUR RESPONSIBILITY TO MAKE AN APPOINTMENT FOR FOLOW-UP CARE. IF YOU HAVE A PRIMARY DOCTOR --you should call your primary doctor and schedule an appointment IF YOU DO NOT HAVE A PRIMARY DOCTOR YOU CAN CALL OUR PHYSICIAN REFERRAL HOTLINE AT IF YOU CAN NOT AFFORD TO SEE A PHYSICIAN YOU CAN CHOSE FROM THE FOLLOWING [facility] CLINICS [facility] [address] [facility] [address] [facility] [facility] [address] [facility] [address] [facility] [facility] [address] [facility] [facility] [address] Additional Instructions: FOLLOW UP WITH YOUR PRIMARY CARE PHYSICIAN TOMORROW.Return to this facility if you are not improving as expected. DAMON DEWITT PA-C Jan 06, 2019 11:12
== END 2019-01-06 10:53 | disposition home or self-care (01) ==
LOC: FTE 08:17
DX: K80.20 Calculus of gallbladder without cholecystitis without obstruction (principal)
CPT/HCPCS: 36415; 76705; 80053; 81001; 81025; 83690; 85025; 96374; 96375; J1885; J2405; J7030; Z7502; Z7610

== ENCOUNTER 2019-05-13 07:58 | Emergency (ER) | payer OTHER ==
[~2019-05-13] VITALS: Ht 157.5 cm; Wt 60.0 kg
[~2019-05-13 07:58] MED LIST changes: +DOCU-144 PO; +FER325 PO; +HYDR-4011 PO
[2019-05-13 08:02] VITALS: BP 100/52; PULSE 53; RESP 18; Ht 157.5 cm; Wt 60.0 kg
[2019-05-13] MEDS ORDERED: SOD CHLORIDE 0.9% 1,000 ML IV STA (08:19)
[2019-05-13] MEDS ORDERED: KETOROLAC 30 MG INJ IV STA (08:19)
[2019-05-13] MEDS ORDERED: ONDANSETRON 4 MG INJ IV STA (08:19)
--- NOTE | 2019-05-13 10:14 | ERD ---
ER Documentation Chief Complaint Chief Complaint ap today, hx gallstones, anemia HPI 33-year-old female presenting with epigastric pain today. Patient had this pain for the last year however she states is getting worse. She is post to get surgery but was diagnosed with anemia. She states she is very tired. Denies any chest pain or shortness of breath. Has never had a transfusion for anemia in the past. Denies any heavy bleeding at this time. Medical history is anemia and gallstones. NKDA. Surgical history . Social history denies ROS All systems reviewed and are negative except as per history of present illness. Medications Home Meds Active Scripts Hydrocodone/Acetaminophen ([place] 5-325 Tablet) 1 Each Tablet, 1 TAB PO Q6H PRN for PAIN, #7 TAB Prov:DAMON DEWITT PA-C 05/13/19 Famotidine* (Pepcid*) 20 Mg Tablet, 20 MG PO BID for 4 Days, #30 TAB Prov:DAMON DEWITT PA-C 05/13/19 Docusate Sodium* (Colace*) 100 Mg Capsule, 100 MG PO TID, #30 CAP Prov:DAMON DEWITT PA-C 05/13/19 Ferrous Sulfate* (Ferrous Sulfate*) 325 Mg Tabec, 325 MG PO DAILY, #30 TAB Prov:DAMON DEWITT PA-C 05/13/19 Famotidine* (Pepcid*) 20 Mg Tablet, 20 MG PO BID for 4 Days, #30 TAB Prov:DAMON DEWITT PA-C 01/06/19 Hydrocodone/Acetaminophen ([place] 5-325 Tablet) 1 Each Tablet, 1 TAB PO Q6H PRN for PAIN, #7 TAB Prov:DAMON DEWITT PA-C 01/06/19 Triamcinolone Acetonide (Triamcinolone Acetonide) 0.1% - 60 Ml Lotion, 1 APPLIC TOP BID, #30 GM Prov:BELLA BETANCOURT PA-C 04/22/17 Polyethylene Glycol* (Miralax*) 17 Gm Powd.pack, 17 GM PO DAILY, #7 Prov:OMERO COLBY MD 03/31/17 Diphenhydramine Hcl* (Benadryl*) 25 Mg Cap, 25 MG PO Q6, #30 CAP Prov:JO ANN DEY PA-C 03/29/17 Famotidine* (Pepcid*) 20 Mg Tablet, 20 MG PO BID for 4 Days, TAB Prov:JO ANN DEY PA-C 03/29/17 Prednisone* (Prednisone*) 20 Mg Tab, 40 MG PO DAILY for 4 Days, TAB Prov:JO ANN DEY PA-C 03/29/17 Hydrocodone/Acetaminophen ([place] 10-325 Tablet) 1 Each Tablet, 1 TAB PO Q6H PRN for PAIN, #7 TAB Prov:OMERO COLBY MD 06/25/16 Ibuprofen* (Motrin*) 600 Mg Tab, 600 MG PO Q8H PRN for PAIN, #20 TAB Prov:OMERO COLBY MD 06/25/16 Amoxicillin/Potassium Clav (Amox-Clav 875-125 mg Tablet) 875-125 mg Tab, 1 TAB PO BID for 10 Days, #20 TAB Prov:OMERO COLBY MD 06/25/16 Allergies Allergies: Coded Allergies: No Known Allergy (Unverified , 05/13/19) PMhx/Soc History of Surgery: No Anesthesia Reaction: No Hx Neurological Disorder: No Hx Respiratory Disorders: No Hx Cardiac Disorders: No Hx Psychiatric Problems: No Hx Miscellaneous Medical Probl: Yes (GALLSTONES , ANEMIA ) Hx Alcohol Use: No Hx Substance Use: No Hx Tobacco Use: No Smoking Status: Never smoker FmHx Family History: No diabetes, No coronary disease, No other Physical Exam Vitals Vital Signs Date Temp Pulse Resp B/P (MAP) Pulse Ox O2 O2 Flow FiO2 Time Delivery Rate 05/13/19 98.1 53 18 100/52 99 08:02 (68) Physical Exam GENERAL: The patient is well-appearing, well-nourished, in no acute distress HEENT: Atraumatic. Conjunctivae are pink. Pupils equal, round, and reactive to light. There is no scleral icterus. Tympanic membranes clear bilaterally. Oropharynx clear. CHEST: Clear to auscultation bilaterally. There are no rales, wheezes or rhonchi. HEART: Regular rate and rhythm. No murmurs, clicks, rubs or gallops. ABDOMEN: Full active bowel sounds. No distention. No organomegaly. Tender palpation the epigastric region with no rebound tenderness. Result Diagram: 05/13/19 0829 05/13/19 0829 Results 24 hrs Laboratory Tests Test 05/13/19 08:29 05/13/19 08:33 White Blood Count 11.4 10^3/ul Red Blood Count 4.25 10^6/ul Hemoglobin 10.3 g/dl Hematocrit 32.4 % Mean Corpuscular Volume 76.2 fl Mean Corpuscular Hemoglobin 24.2 pg Mean Corpuscular Hemoglobin Concent 31.8 g/dl Red Cell Distribution Width 15.7 % Platelet Count 55 10^3/UL Mean Platelet Volume 11.8 fl Immature Granulocytes % 0.600 % Neutrophils % 63.9 % Lymphocytes % 29.1 % Monocytes % 5.2 % Eosinophils % 0.9 % Basophils % 0.3 % Nucleated Red Blood Cells % 0.0 /100WBC Immature Granulocytes # 0.070 10^3/ul Neutrophils # 7.3 10^3/ul Lymphocytes # 3.3 10^3/ul Monocytes # 0.6 10^3/ul Eosinophils # 0.1 10^3/ul Basophils # 0.0 10^3/ul Nucleated Red Blood Cells # 0.0 10^3/ul Urine Color YELLOW Urine Clarity CLEAR Urine pH 7.0 Urine Specific [place] 1.012 Urine Ketones NEGATIVE mg/dL Urine Nitrite NEGATIVE mg/dL Urine Bilirubin NEGATIVE mg/dL Urine Urobilinogen NEGATIVE mg/dL Urine Leukocyte Esterase NEGATIVE Annalisa/ul Urine Microscopic RBC 1 /HPF Urine Microscopic WBC 1 /HPF Urine Squamous Epithelial Cells FEW /HPF Urine Mucus FEW /HPF Urine Hemoglobin 2+ mg/dL Urine Glucose NEGATIVE mg/dL Urine Total Protein NEGATIVE mg/dl Sodium Level 141 mmol/L Potassium Level 4.1 mmol/L Chloride Level 105 mmol/L Carbon Dioxide Level 30 mmol/L Anion Gap 6 Blood Urea Nitrogen 8 mg/dl Creatinine 0.49 mg/dl Est Glomerular Filtrat Rate mL/min > 60 mL/min Glucose Level 90 mg/dl Calcium Level 9.0 mg/dl Total Bilirubin 0.4 mg/dl Direct Bilirubin 0.00 mg/dl Indirect Bilirubin 0.4 mg/dl Aspartate Amino Transf (AST/SGOT) 23 IU/L Alanine Aminotransferase (ALT/SGPT) 26 IU/L Alkaline Phosphatase 100 IU/L Total Protein 7.2 g/dl Albumin 3.9 g/dl Globulin 3.30 g/dl Albumin/Globulin Ratio 1.18 Lipase 47 U/L POC Beta HCG, Qualitative NEGATIVE Current Medications Medications Dose Sig/Vale Start Time Status Last (Trade) Ordered Route PRN Stop Time Admin Dose Reason Admin Sodium 1,000 ml @ Q1H STAT 05/13/19 DC 05/13/19 Chloride 1,000 mls/hr IV 08:19 05/13/19 09:05 09:18 Ondansetron 4 mg ONCE STAT 05/13/19 DC 05/13/19 HCl (Zofran IV 08:19 05/13/19 09:06 Inj) 08:20 Ketorolac 30 mg ONCE STAT 05/13/19 DC 05/13/19 Tromethamine IV 08:05/13/19 09:06 (Toradol) 08:20 Procedures/MDM DIAGNOSTIC IMAGING REPORT Patient: SUZETTE CARDONA : 1985 Age: 33 Sex: F MR #: [id number] DOS: 05/13/19818 Ordering MD: CHRISTIAN DEWITT PA-C Location: [facility] Room/Bed: PROCEDURE: US Abdomen. CLINICAL INDICATION: abdominal pain TECHNIQUE: Multiple real-time images were acquired of the patient's right upper quadrant abdomen and retroperitoneum utilizing a high resolution transducer. COMPARISON: 01/06/2019 FINDINGS: The liver demonstrates normal echogenicity. The liver is normal in size and no focal solid lesions are seen. The liver measures 17.5 cm in length. The portal vein is patent with normal direction of flow. No intrahepatic biliary dilatation is seen. Multiple calcified gallstones are identified within the gallbladder. There is no pericholecystic fluid or gallbladder wall thickening. The common bile duct measures 3 mm in maximal dimension. The visualized portions of the pancreas are unremarkable. The tail of the pancreas is not seen. No free fluid is identified. The right kidney is normal in size, and demonstrate normal echogenicity and cortical thickness. The right kidney measures 11.9 cm in long dimension. There is no evidence of hydronephrosis. There are no kidney stones. RPTAT: AA IMPRESSION: Cholelithiasis. MDM: 33-year-old female presenting with abdominal pain. Patient has findings consistent with cholelithiasis with no findings consistent with cholecystitis. Blood work does show anemia however no transfusion indicated at this time and patient does not have any heavy bleeding. Patient is discharged with strict ER precautions and told to follow-up with primary care within 1 to 2 days for close evaluation. Patient is told if symptoms change or worsen to return immediately to the ER. All questions answered at discharge Departure Diagnosis: Primary Impression: Anemia Additional Impression: Gallstones Condition: Stable Patient Instructions: Anemia, Gallstones Referrals: [facility]ICS YOU HAVE RECEIVED A MEDICAL SCREENING EXAM AND THE RESULTS INDICATE THAT YOU DO NOT HAVE A CONDITION THAT REQUIRES URGENT TREATMENT IN THE EMERGENCY DEPARTMENT. FURTHER EVALUATION AND TREATMENT OF YOUR CONDITION CAN WAIT UNTIL YOU ARE SEEN IN YOUR DOCTORS OFFICE WITHIN THE NEXT 1-2 DAYS. IT IS YOUR RESPONSIBILITY TO MAKE AN APPOINTMENT FOR FOLOW-UP CARE. IF YOU HAVE A PRIMARY DOCTOR --you should call your primary doctor and schedule an appointment IF YOU DO NOT HAVE A PRIMARY DOCTOR YOU CAN CALL OUR PHYSICIAN REFERRAL HOTLINE AT IF YOU CAN NOT AFFORD TO SEE A PHYSICIAN YOU CAN CHOSE FROM THE FOLLOWING [facility] CLINICS [facility] [address] [facility]. [facility] [address] [facility] [facility] [address] [facility] [address] [facility] [address] [facility] [facility]. [address] Additional Instructions: FOLLOW UP WITH YOUR PRIMARY CARE PHYSICIAN TOMORROW.Return to this facility if you are not improving as expected. DAMON DEWITT PA-C May 13, 2019 10:14
== END 2019-05-13 09:44 | disposition home or self-care (01) ==
LOC: FTE 07:58
DX: D64.9 Anemia, unspecified (principal); K80.20 Calculus of gallbladder without cholecystitis without obstruction
CPT/HCPCS: 36415; 76705; 80053; 81001; 81025; 83690; 85025; 96374; 96375; J1885; J2405; J7030; Z7502

== ENCOUNTER 2019-07-08 00:13 | Emergency (ER) | payer OTHER ==
[~2019-07-08] VITALS: Ht 157.5 cm; Wt 69.7 kg
[~2019-07-08 00:13] MED LIST changes: +BISM-34 PO; +DICY10CA40 PO; +IBUP-1561 PO
[2019-07-08 00:16] VITALS: Ht 157.5 cm; Wt 69.7 kg
[2019-07-08] MEDS ORDERED: FAMOTIDINE 20 MG TAB PO STA (01:50)
[2019-07-08] MEDS ORDERED: IBUPROFEN 600 MG TAB PO ONE (02:00)
[2019-07-08] MEDS ORDERED: LIDOCAINE/MYLANTA 40 ML BTL PO ONE (02:00)
[2019-07-08 03:40] VITALS: BP 104/57; PULSE 16; RESP 16
== END 2019-07-08 03:40 | disposition home or self-care (01) ==
LOC: FTE 00:13
DX: K52.9 Noninfective gastroenteritis and colitis, unspecified (principal)
CPT/HCPCS: 36415; 74176; 80053; 81001; 81025; 83690; 85025; 85610; 85730; Z7502; Z7610